=== PATIENT | male | born 1980 ===

== ENCOUNTER 2024-02-22 17:59 | Emergency (ER) | payer SELFPAY | END 2024-02-23 00:49 | disposition left against medical advice (07) | LOC: ER 18:00 | DX: S09.8XXA Other specified injuries of head, initial encounter (principal); R56.9 Unspecified convulsions; R15.9 Full incontinence of feces; X58.XXXA Exposure to other specified factors, initial encounter; Y93.89 Activity, other specified; Y92.89 Other specified places as the place of occurrence of the external cause; Y99.8 Other external cause status | CPT/HCPCS: 99283 ==